=== PATIENT | male | born 1955 | race Caucasian/White ===

== ENCOUNTER → 2019-08-25 | Outpatient (CLI) | payer OTHER ==
--- NOTE | 2019-08-25 14:42 | 2DMMODE ---
[facility] [place] [place] [address] 2 D/M-MODE ECHOCARDIOGRAM Name: KARMA JAIN Room #: REG [facility]#: [id number] Admission: 08/25/19 Attend Phys: Basilio Duran Discharge: Date of : 53 Report #: [id number] THIS REPORT FOR: //name// APPROVED REPORT Study performed: 08/25/2019 13:44:29 EXAM: Comprehensive 2D, Doppler, and color-flow Echocardiogram Patient Location: Out-Patient Status: routine BSA: 2.02 HR: 65 bpm BP: 116/74 mmHg Rhythm: NSR/PVCs Indications Palpitations, PVCs. 2D Dimensions RVDd: 32.81 mm IVSd: 10.78 (7-11mm) LVOT Diam: 24.60 (18-24mm) LVDd: 49.64 mm PWd: 9.64 (7-11mm) Ascending Ao: 39.61 (22-36mm) LVDs: 32.89 (25-40mm) Aortic Root: 48.16 mm Volumes Left Atrial Volume (Systole) Single Plane 4CH: 42.45 mL Single Plane 2CH: 45.85 mL LA ESV Index: 24.00 mL/m2 Aortic Valve AoV Peak North.: 1.28 m/s AO Peak Gr.: 6.59 mmHg LVOT Max P.51 mmHg LVOT Max V: 1.06 m/s JAY Vmax: 3.93 cm2 Mitral Valve E/A Ratio: 1.4 MV Decel. Time: 181.82 ms MV E Max North.: 0.63 m/s MV A North.: 0.45 m/s MV PHT: 52.73 ms IVRT: 110.73 ms [facility] [place] [address] 2 D/M-MODE ECHOCARDIOGRAM Name: KARMA JAIN [facility] [id number] Admission: 08/25/19 Attend Phys: Basilio Duran Discharge: Date of : 53 Report #: [id number] Pulmonary Valve PV Peak North.: 0.75 m/s PV Peak Gr.: 2.24 mmHg Pulmonary Vein P Vein S: 0.42 m/s P Vein A: 0.34 m/s P Vein D: 0.43 m/s P Vein A Dur.: 129.2 msec P Vein S/D Ratio: 0.98 Tricuspid Valve TR Peak North.: 2.28 m/s RAP Estimate: 5.00 mmHg TR Peak Gr.: 21.00 mmHg PA Pressure: 26.00 mmHg Left Ventricle The left ventricle is normal size. There is normal LV segmental wall motion. There is normal left ventricular wall thickness. Left ventricular systolic function is normal. LVEF is 55-60%. Right Ventricle The right ventricle is normal size. The right ventricular systolic function is normal. Atria The left atrium size is normal. The right atrium size is normal. Aortic Valve The aortic valve is normal in structure. Trace aortic regurgitation. There is no aortic valvular stenosis. Mitral Valve The mitral valve is normal in structure. Trace mitral regurgitation. Tricuspid Valve The tricuspid valve is normal in structure. Trace tricuspid regurgitation. Estimated PAP is 25-30mmHg. Pulmonic Valve The pulmonary valve is normal in structure. Trace pulmonic regurgitation. 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 IVC is normal in size and collapses >50% with [facility] [id number] [place] [address] 2 D/M-MODE ECHOCARDIOGRAM Name: KARMA JAIN Room #: REG [facility]#: [id number] Admission: 08/25/19 Attend Phys: Basilio Duran Discharge: Date of : 53 Report #: [id number] inspiration. Pericardium There is no pericardial effusion. <Conclusion> The left ventricle is normal size. LVEF is 55-60%. The aortic valve is normal in structure. Trace aortic regurgitation. The mitral valve is normal in structure. Trace mitral regurgitation. The tricuspid valve is normal in structure. Trace tricuspid regurgitation. Estimated PAP is 25-30mmHg. The pulmonary valve is normal in structure. Trace pulmonic regurgitation. 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 There is no pericardial effusion. <ELECTRONICALLY SIGNED> By: Hong Deleon MD 08/25/19 144 40 40 Hong Deleon MD /INF
== END ==
LOC: CV 11:03
DX: I49.3 Ventricular premature depolarization (principal)